=== PATIENT | female | born 1950 | race Caucasian/White ===

== ENCOUNTER 2016-09-20 18:02 | Emergency (ER) | payer OTHER ==
[~2016-09-20 18:02] MED LIST: LORT7 PO; PR25 PO; PRILO PO; SYN.025B PO; TOPAMAX25 PO; ZESTORETIC1 TAB PO
== END 2016-09-20 22:40 | disposition home or self-care (01) ==
LOC: ER 18:02
DX: S00.83XA Contusion of other part of head, initial encounter (principal); M25.511 Pain in right shoulder; I10 Essential (primary) hypertension; K21.9 Gastro-esophageal reflux disease without esophagitis; F41.9 Anxiety disorder, unspecified; Z88.2 Allergy status to sulfonamides; Z79.899 Other long term (current) drug therapy; W10.9XXA Fall (on) (from) unspecified stairs and steps, initial encounter
CPT/HCPCS: 73030-RT; 99283; A9270-GY